=== PATIENT | female | born 2000 | race Caucasian/White ===

== ENCOUNTER 2024-12-19 07:17 | Emergency (ER) | payer OTHER ==
[~2024-12-19] VITALS: Ht 175.3 cm; Wt 68.0 kg
[2024-12-19] MEDS ORDERED: AZIT250T13 PO (07:44)
[2024-12-19] MEDS ORDERED: LORA10TA7 PO (07:44)
[2024-12-19] MEDS ORDERED: PRED20TA PO (07:48)
[2024-12-19] MEDS ORDERED: METF-440 PO (07:48)
[2024-12-19 08:04] VITALS: BP 125/76; O2SAT 98
== END 2024-12-19 08:05 | disposition home or self-care (01) ==
LOC: ER 07:23
DX: J02.9 Acute pharyngitis, unspecified (principal); Z76.0 Encounter for issue of repeat prescription; Z79.52 Long term (current) use of systemic steroids; Z79.84 Long term (current) use of oral hypoglycemic drugs
CPT/HCPCS: A4606; A4663